=== PATIENT | female | born 1985 | race Caucasian/White ===

== ENCOUNTER 2017-08-10 20:22 | Emergency (ER) | payer MEDICARE, MEDICAID ==
[~2017-08-10] VITALS: Ht 170.2 cm; Wt 81.8 kg
[~2017-08-10 20:22] MED LIST: FAMO40TA73 PO; GUAI236S16 PO; HYDR-569 PO; KETO10TA2 PO; NITR100C6 PO; NO HOME MEDS; ONDA4TAB12 PO; ONDA4TAB59 PO; PHEN-824 PO; PRED20TA PO
[2017-08-10 20:52] LABS: BASOPHILS # (AUTO) 0.1 X10'3 (0-0.2); BASOPHILS % (AUTO) 0.6 % (0-1); EOSINOPHILS # (AUTO) 0.2 X10'3 (0-0.9); EOSINOPHILS % (AUTO) 1.3 % (0-6); HEMATOCRIT 39.1 % (35.0-45.0); HEMOGLOBIN 13.2 g/dl (12.0-16.0); LYMPHOCYTES # (AUTO) 3.6 X10'3 (1.1-4.8); LYMPHOCYTES % (AUTO) 31.2 % (21-51); MEAN CORPUSCULAR HGB CONC 33.8 % (33.0-36.5); MEAN CORPUSCULAR VOLUME 91.9 FL (78-98); MEAN PLATELET VOLUME 10.2 FL (7.4-10.4); MONOCYTES # (AUTO) 0.7 X10'3 (0-0.9); MONOCYTES % (AUTO) 6.6 % (2-12); NEUTROPHILS # (AUTO) 6.9 X10'3 (1.8-7.7); NEUTROPHILS % (AUTO) 60.3 % (42-75); PLATELET COUNT 175 X10'3 (140-440); RED BLOOD COUNT 4.26 X10'6 (4.20-5.60); RED CELL DISTRIBUTION WIDTH 12.9 % (11.5-14.5); WHITE BLOOD COUNT 11.4 X10'3 (4.5-11.0)
[2017-08-10 20:58] LABS: CLARITY,URINE Clear (Clear); COLOR,URINE Yellow (Yellow); GLUCOSE, URINE Negative (Neg); KETONES,URINE Trace mg/dl (Neg); LEUKOCYTE ESTERASE ,URINE Negative (Neg); NITRITES, URINE Negative (Neg); OCCULT BLOOD,URINE Negative (Neg); PROTEIN,URINE Negative (Neg); URINE HCG NEGATIVE (NEG)
[2017-08-10 20:58] LABS: PROTHROMBIN TIME 10.2 SECONDS (9.0-12.0)
[2017-08-10 21:01] LABS: UA COLLECTION TYPE CLN CATCH MIDSTREAM
[2017-08-10 21:04] LABS: ALANINE AMINOTRANSFERASE 42 U/L (12-78); ALBUMIN/GLOBULIN RATIO 1.1 (1.1-1.5); ALKALINE PHOSPHATASE 46 IU/L (46-116); AMYLASE 56 U/L (25-115); ANION GAP 6 (8-16); ASPARTATE AMINO TRANSFERASE 32 U/L (10-37); BILIRUBIN,TOTAL 0.3 MG/DL (0.1-1.0); BLOOD UREA NITROGEN 21 MG/DL (7-18); CALCIUM 9.1 MG/DL (8.5-10.1); CHLORIDE 108 MMOL/L (99-107); GLUCOSE 85 MG/DL (70-104); LIPASE 215 U/L (73-393); POTASSIUM 3.9 MMOL/L (3.5-5.1); SODIUM 140 MMOL/L (135-145); TOTAL CARBON DIOXIDE 26.1 MMOL/L (24-32); TOTAL PROTEIN 7.5 G/DL (6.4-8.2); eGFR 44 ML/MIN
[2017-08-10] MEDS ORDERED: ketorolac trometh inj. 60 MG/2 ML VIAL IM ONE (21:05)
[2017-08-10] MEDS ORDERED: acetaminophen 325mg tablet PO ONE (21:05)
[2017-08-10] MEDS ORDERED: ondansetron 4mg rapidly disintigrating tab PO ONE (21:05)
[2017-08-10 21:53] VITALS: BP 128/103
== END 2017-08-10 21:55 | disposition home or self-care (01) ==
LOC: ER 20:23
DX: R10.31 Right lower quadrant pain (principal); R11.0 Nausea; G89.29 Other chronic pain; F41.9 Anxiety disorder, unspecified; F32.9 Major depressive disorder, single episode, unspecified; Z88.0 Allergy status to penicillin; Z88.8 Allergy status to other drugs, medicaments and biological substances; Z79.899 Other long term (current) drug therapy
CPT/HCPCS: 36415; 80053; 81003; 81025; 82150; 83690; 85025; 85610; 96372; 99284; J1885

== ENCOUNTER 2017-10-30 08:33 | Emergency (ER) | payer MEDICARE, MEDICAID ==
[~2017-10-30] VITALS: Ht 170.2 cm; Wt 79.5 kg
[2017-10-30 08:35] VITALS: BP 148/83
[2017-10-30] MEDS ORDERED: famotidine 20mg tablet PO STA (08:56)
[2017-10-30] MEDS ORDERED: METH4TAB3 PO (08:57)
== END 2017-10-30 09:13 | disposition home or self-care (01) ==
LOC: ER 08:34
DX: T78.40XA Allergy, unspecified, initial encounter (principal); G89.29 Other chronic pain; Z88.0 Allergy status to penicillin; Z79.899 Other long term (current) drug therapy; X58.XXXA Exposure to other specified factors, initial encounter
CPT/HCPCS: 99283

== ENCOUNTER 2018-01-29 18:23 | Emergency (ER) | payer MEDICARE, MEDICAID ==
[~2018-01-29] VITALS: Ht 170.2 cm; Wt 75.0 kg
[~2018-01-29 18:23] MED LIST changes: +METH4TAB3 PO
[2018-01-29] MEDS ORDERED: ACET-2006 PO (19:00)
[2018-01-29] MEDS ORDERED: ketorolac tromethamine 15mg/ml inj. IM ONE (19:00)
[2018-01-29] MEDS ORDERED: CLIN300C70 PO (19:00)
[2018-01-29] MEDS ORDERED: IBUP-1986 PO (19:00)
[2018-01-29] MEDS ORDERED: ANBESOL TP (19:00)
[2018-01-29] MEDS ORDERED: clindamycin 150mg capsule PO ONE (19:00)
== END 2018-01-29 19:26 | disposition home or self-care (01) ==
LOC: ER 18:24
DX: K08.89 Other specified disorders of teeth and supporting structures (principal); G89.29 Other chronic pain; Z88.0 Allergy status to penicillin; Z79.899 Other long term (current) drug therapy
CPT/HCPCS: 96372; 99283; J1885

== ENCOUNTER 2018-04-12 20:26 | Emergency (ER) | payer MEDICARE, MEDICAID ==
[~2018-04-12] VITALS: Ht 170.2 cm; Wt 75.0 kg
[~2018-04-12 20:26] MED LIST changes: +ACET-2006 PO; +IBUP-1986 PO
[2018-04-12 20:46] VITALS: BP 110/73
[2018-04-12 21:21] LABS: URINE HCG NEGATIVE (NEG)
[2018-04-12 21:21] LABS: BASOPHILS % (AUTO) 0.3 % (0-1); EOSINOPHILS # (AUTO) 0.2 X10'3 (0-0.9); EOSINOPHILS % (AUTO) 1.7 % (0-6); HEMATOCRIT 37.8 % (35.0-45.0); LYMPHOCYTES # (AUTO) 3.6 X10'3 (1.1-4.8); LYMPHOCYTES % (AUTO) 33.5 % (21-51); MEAN CORPUSCULAR HEMOGLOBIN 31.7 PG (27.0-31.0); MEAN CORPUSCULAR HGB CONC 34.3 % (33.0-36.5); MEAN CORPUSCULAR VOLUME 92.6 FL (78-98); MEAN PLATELET VOLUME 9.5 FL (7.4-10.4); MONOCYTES # (AUTO) 0.6 X10'3 (0-0.9); MONOCYTES % (AUTO) 6.1 % (2-12); NEUTROPHILS # (AUTO) 6.2 X10'3 (1.8-7.7); NEUTROPHILS % (AUTO) 58.4 % (42-75); PLATELET COUNT 188 X10'3 (140-440); RED BLOOD COUNT 4.08 X10'6 (4.20-5.60); RED CELL DISTRIBUTION WIDTH 12.6 % (11.5-14.5); WHITE BLOOD COUNT 10.6 X10'3 (4.5-11.0)
[2018-04-12 21:25] LABS: CLARITY,URINE CLEAR (Clear); COLOR,URINE YELLOW (Yellow); GLUCOSE, URINE NEGATIVE (Neg); KETONES,URINE NEGATIVE (Neg); LEUKOCYTE ESTERASE ,URINE NEGATIVE (Neg); NITRITES, URINE NEGATIVE (Neg); OCCULT BLOOD,URINE NEGATIVE (Neg); PROTEIN,URINE NEGATIVE (Neg); UA COLLECTION TYPE CLN CATCH MIDSTREAM; UROBILINOGEN,URINE 0.2 E.U/dL (0.2-1.0)
[2018-04-12 21:30] LABS: ALANINE AMINOTRANSFERASE 42 U/L (12-78); ALBUMIN 3.8 G/DL (3.4-5.0); ALBUMIN/GLOBULIN RATIO 1.2 (1.1-1.5); ALKALINE PHOSPHATASE 59 IU/L (46-116); AMYLASE 65 U/L (25-115); ANION GAP 9 (8-16); ASPARTATE AMINO TRANSFERASE 25 U/L (10-37); BILIRUBIN,TOTAL 0.4 MG/DL (0.1-1.0); BLOOD UREA NITROGEN 20 MG/DL (7-18); BUN/CREATININE RATIO 17.9 (6.6-38.0); CALCIUM 8.7 MG/DL (8.5-10.1); CHLORIDE 105 MMOL/L (99-107); CREATININE 1.12 MG/DL (0.40-0.90); GLUCOSE 86 MG/DL (70-104); LIPASE 207 U/L (73-393); POTASSIUM 3.7 MMOL/L (3.5-5.1); SODIUM 141 MMOL/L (135-145); TOTAL CARBON DIOXIDE 26.9 MMOL/L (24-32); TOTAL PROTEIN 6.9 G/DL (6.4-8.2); eGFR 57 ML/MIN
[2018-04-12] MEDS ORDERED: ondansetron 4mg rapidly disintigrating tab PO ONE (21:50)
[2018-04-12] MEDS ORDERED: ONDA4TAB9 SL (21:51)
== END 2018-04-12 22:28 | disposition home or self-care (01) ==
LOC: ER 20:27
DX: B34.9 Viral infection, unspecified (principal); R11.2 Nausea with vomiting, unspecified; G89.29 Other chronic pain; Z88.0 Allergy status to penicillin; Z79.899 Other long term (current) drug therapy
CPT/HCPCS: 36415; 80053; 81003; 81025; 82150; 83690; 85025; 85610; 99284

== ENCOUNTER 2018-09-13 12:53 | Emergency (ER) | payer MEDICARE, MEDICAID ==
[~2018-09-13] VITALS: Ht 170.2 cm; Wt 78.0 kg
[~2018-09-13 12:53] MED LIST changes: +HYDR-4383 PO; -HYDR-569 PO
[2018-09-13 13:10] VITALS: BP 118/75
--- NOTE | 2018-09-14 09:20 | NUR ---
Called for patient to return. Phone went to , left message.
== END 2018-09-13 15:53 | disposition left against medical advice (07) ==
LOC: ER 12:53
DX: R07.9 Chest pain, unspecified (principal); M54.9 Dorsalgia, unspecified; R06.02 Shortness of breath; Z53.21 Procedure and treatment not carried out due to patient leaving prior to being seen by health care provider

== ENCOUNTER 2018-09-15 10:14 | Emergency (ER) | payer MEDICARE, MEDICAID ==
[~2018-09-15] VITALS: Ht 170.2 cm; Wt 76.6 kg
--- NOTE | 2018-09-15 11:54 | NUR ---
Rapid strep swab collected and sent to lab.
[2018-09-15] MEDS ORDERED: HYDR-4383 PO (12:56)
[2018-09-15 13:09] VITALS: BP 114/75
== END 2018-09-15 13:10 | disposition home or self-care (01) ==
LOC: ER 10:14
DX: J02.8 Acute pharyngitis due to other specified organisms (principal); B97.89 Other viral agents as the cause of diseases classified elsewhere; M54.2 Cervicalgia; G89.29 Other chronic pain; Z88.0 Allergy status to penicillin; Z79.899 Other long term (current) drug therapy
CPT/HCPCS: 87077; 87081; 87880; 93005; 99284

== ENCOUNTER 2018-11-27 10:39 | Emergency (ER) | payer MEDICARE, MEDICAID ==
[~2018-11-27] VITALS: Ht 170.2 cm; Wt 78.8 kg
[2018-11-27] MEDS ORDERED: morphine 2 MG/ML inj. syringe IV PRN (12:05)
[2018-11-27] MEDS ORDERED: normal saline 1000ML IV soln IVB ONE (12:05)
[2018-11-27] MEDS ORDERED: ondansetron/PF 4mg/2ml inj IV ONE (12:05)
[2018-11-27 12:13] LABS: CLARITY,URINE CLEAR (Clear); COLOR,URINE YELLOW (Yellow); GLUCOSE, URINE NEGATIVE (Neg); KETONES,URINE NEGATIVE (Neg); LEUKOCYTE ESTERASE ,URINE NEGATIVE (Neg); NITRITES, URINE NEGATIVE (Neg); OCCULT BLOOD,URINE LARGE (Neg); PROTEIN,URINE NEGATIVE (Neg); UROBILINOGEN,URINE 0.2 E.U/dL (0.2-1.0)
[2018-11-27 12:22] LABS: UA COLLECTION TYPE CLN CATCH MIDSTREAM
[2018-11-27 12:24] LABS: BACTERIA,URINE FEW /HPF (Neg); MUCUS STRANDS FEW /LPF (Neg); SQUAMOUS EPITHELIAL CELL,UR FEW /LPF (FEW); WBC,URINE 0-4 /HPF (0-4)
[2018-11-27 12:28] LABS: BASOPHILS % (AUTO) 0.6 % (0-1); EOSINOPHILS # (AUTO) 0.1 X10'3 (0-0.9); EOSINOPHILS % (AUTO) 1.6 % (0-6); HEMATOCRIT 38.8 % (35.0-45.0); LYMPHOCYTES # (AUTO) 2.6 X10'3 (1.1-4.8); LYMPHOCYTES % (AUTO) 31.2 % (21-51); MEAN CORPUSCULAR HEMOGLOBIN 31.3 PG (27.0-31.0); MEAN CORPUSCULAR HGB CONC 33.6 g/dL (33.0-36.5); MEAN PLATELET VOLUME 9.3 FL (7.4-10.4); MONOCYTES # (AUTO) 0.7 X10'3 (0-0.9); MONOCYTES % (AUTO) 8.2 % (2-12); NEUTROPHILS # (AUTO) 4.9 X10'3 (1.8-7.7); NEUTROPHILS % (AUTO) 58.4 % (42-75); PLATELET COUNT 173 X10'3 (140-440); RED BLOOD COUNT 4.17 X10'6 (4.20-5.60); WHITE BLOOD COUNT 8.4 X10'3 (4.5-11.0)
[2018-11-27 12:46] LABS: ALANINE AMINOTRANSFERASE 27 U/L (12-78); ALBUMIN 3.6 G/DL (3.4-5.0); ALBUMIN/GLOBULIN RATIO 1.2 (1.1-1.5); ALKALINE PHOSPHATASE 40 IU/L (46-116); ANION GAP 7 (8-16); ASPARTATE AMINO TRANSFERASE 18 U/L (10-37); BILIRUBIN,TOTAL 0.5 MG/DL (0.1-1.0); BLOOD UREA NITROGEN 16 MG/DL (7-18); BUN/CREATININE RATIO 18.4 (6.6-38.0); CALCIUM 8.8 MG/DL (8.5-10.1); CHLORIDE 108 MMOL/L (99-107); CREATININE 0.87 MG/DL (0.40-0.90); GLUCOSE 80 MG/DL (70-104); SODIUM 141 MMOL/L (135-145); TOTAL CARBON DIOXIDE 26.5 MMOL/L (24-32); TOTAL PROTEIN 6.7 G/DL (6.4-8.2); eGFR 76 ML/MIN
[2018-11-27 12:55] LABS: HCG SERUM QL NEGATIVE
[2018-11-27] MEDS ORDERED: METR-159 PO (13:54)
[2018-11-27 14:09] VITALS: BP 117/67
== END 2018-11-27 14:13 | disposition home or self-care (01) ==
LOC: ER 10:40
DX: N76.0 Acute vaginitis (principal); B96.89 Other specified bacterial agents as the cause of diseases classified elsewhere; G89.29 Other chronic pain; F12.90 Cannabis use, unspecified, uncomplicated; F17.200 Nicotine dependence, unspecified, uncomplicated; Z98.890 Other specified postprocedural states; Z88.0 Allergy status to penicillin; Z79.899 Other long term (current) drug therapy
CPT/HCPCS: 36415; 71046; 76830; 76856; 80053; 81001; 84703; 85025; 87210; 87491; 87591; 96374; 96375; 99284; J2270; J2405; J7030; 93005

== ENCOUNTER 2019-05-13 15:03 | Emergency (ER) | payer MEDICARE, MEDICAID ==
[~2019-05-13] VITALS: Ht 170.2 cm; Wt 77.3 kg
[2019-05-13 15:12] VITALS: BP 119/82
[2019-05-13] MEDS ORDERED: LIDO20SO16 PO (15:40)
== END 2019-05-13 15:48 | disposition home or self-care (01) ==
LOC: ER 15:03
DX: J02.9 Acute pharyngitis, unspecified (principal); R09.81 Nasal congestion; R11.10 Vomiting, unspecified; F41.9 Anxiety disorder, unspecified; F32.9 Major depressive disorder, single episode, unspecified; F12.90 Cannabis use, unspecified, uncomplicated; Z88.0 Allergy status to penicillin; Z79.899 Other long term (current) drug therapy; Z98.890 Other specified postprocedural states
CPT/HCPCS: 99283

== ENCOUNTER 2019-10-14 10:35 | Emergency (ER) | payer MEDICARE, MEDICAID ==
[~2019-10-14] VITALS: Ht 170.2 cm; Wt 86.4 kg
[~2019-10-14 10:35] MED LIST changes: +LIDO20SO16 PO
[2019-10-14 13:59] VITALS: BP 110/83
== END 2019-10-14 14:10 | disposition home or self-care (01) ==
LOC: ER 10:36
DX: J06.9 Acute upper respiratory infection, unspecified (principal); F17.200 Nicotine dependence, unspecified, uncomplicated; F12.90 Cannabis use, unspecified, uncomplicated; Z98.890 Other specified postprocedural states; Z88.0 Allergy status to penicillin; Z79.899 Other long term (current) drug therapy
CPT/HCPCS: 99281

== ENCOUNTER → 2020-09-01 | Emergency (ER) | payer MEDICARE, MEDICAID ==
[~2020-09-01] VITALS: Ht 170.2 cm; Wt 89.1 kg
[~2020-09-01] MED LIST changes: +CLIN-97 PO; +HYDROcodone/acetaminophen 5mg/325mg tablet PO ONE; +clindamycin 150mg capsule PO ONE
[2020-09-01 22:45] VITALS: BP 135/87
== END | disposition home or self-care (01) ==
LOC: ER 22:42
DX: S02.5XXA Fracture of tooth (traumatic), initial encounter for closed fracture (principal); K04.7 Periapical abscess without sinus; F17.200 Nicotine dependence, unspecified, uncomplicated; G89.29 Other chronic pain; Z88.0 Allergy status to penicillin; Z79.899 Other long term (current) drug therapy; Z87.81 Personal history of (healed) traumatic fracture; Z98.891 History of uterine scar from previous surgery; X58.XXXA Exposure to other specified factors, initial encounter; Y93.89 Activity, other specified; Y92.89 Other specified places as the place of occurrence of the external cause; Y99.8 Other external cause status
CPT/HCPCS: 99283

== ENCOUNTER 2021-03-27 11:58 | Emergency (ER) | payer MEDICARE, MEDICAID ==
[~2021-03-27] VITALS: Ht 170.2 cm; Wt 81.8 kg
[~2021-03-27 11:58] MED LIST changes: -HYDROcodone/acetaminophen 5mg/325mg tablet PO ONE; -clindamycin 150mg capsule PO ONE
[2021-03-27 12:29] VITALS: BP 130/84
== END 2021-03-27 12:38 | disposition home or self-care (01) ==
LOC: ER 11:58
DX: J02.9 Acute pharyngitis, unspecified (principal); Z20.822 Contact with and (suspected) exposure to COVID-19; R11.2 Nausea with vomiting, unspecified; G89.29 Other chronic pain; F41.9 Anxiety disorder, unspecified; F32.9 Major depressive disorder, single episode, unspecified; F12.90 Cannabis use, unspecified, uncomplicated; Z98.890 Other specified postprocedural states; Z72.89 Other problems related to lifestyle; Z88.0 Allergy status to penicillin; Z79.2 Long term (current) use of antibiotics; Z79.899 Other long term (current) drug therapy
CPT/HCPCS: 36415; 99283; U0003; U0005

== ENCOUNTER 2024-05-19 12:34 | Emergency (ER) | payer MEDICAID, MEDICARE, OTHER ==
[~2024-05-19] VITALS: Ht 170.2 cm; Wt 86.4 kg
[~2024-05-19 12:34] MED LIST changes: +ONDA-243 PO; -ONDA4TAB12 PO
[2024-05-19 12:47] VITALS: BP 132/96; PULSE 85; O2SAT 98
[2024-05-19] MEDS: dexamethasone sod phosphate 10mg/ml inj IM STA (12:51)
[2024-05-19 12:55] VITALS: RESP 16
[2024-05-19] MEDS: cyclobenzaprine 10mg tablet PO ONE (12:55)
[2024-05-19] MEDS: HYDROcodone/acetaminophen 5mg/325mg tablet PO ONE (12:55)
[2024-05-19] MEDS: ondansetron 4mg rapidly disintigrating tab PO ONE (12:55)
[2024-05-19] MEDS: ketorolac trometh 30MG/ML vial 30 MG/ML VIAL IM ONE (12:55)
[2024-05-19] MEDS ORDERED: HYDR-3965 PO (13:59)
[2024-05-19] MEDS ORDERED: LIDO700A32 TOP (13:59)
[2024-05-19] MEDS ORDERED: CYCL-1 PO (13:59)
[2024-05-19 14:35] VITALS: TEMP 98.1
== END 2024-05-19 14:37 | disposition home or self-care (01) ==
LOC: ER 12:35
DX: M54.2 Cervicalgia (principal); G89.29 Other chronic pain; F41.9 Anxiety disorder, unspecified; F32.A Depression, unspecified; F12.90 Cannabis use, unspecified, uncomplicated; Z88.0 Allergy status to penicillin; Z79.1 Long term (current) use of non-steroidal anti-inflammatories (NSAID); Z79.2 Long term (current) use of antibiotics; Z79.899 Other long term (current) drug therapy
CPT/HCPCS: 72050; 96372; 99284; J1100; J1885

== ENCOUNTER 2025-02-10 17:36 | Emergency (ER) | payer MEDICAID ==
[~2025-02-10] VITALS: Ht 170.2 cm; Wt 77.1 kg
[~2025-02-10 17:36] MED LIST changes: +CYCL-1 PO; +LIDO-52 TOP
[2025-02-10 17:42] VITALS: BP 126/95; PULSE 88; RESP 15; O2SAT 100
[2025-02-10] MEDS ORDERED: CYCL-1 PO (18:46)
[2025-02-10] MEDS ORDERED: NAPR-56 PO (18:46)
--- NOTE | 2025-02-10 18:46 | Physician Documentation ---
History of Present Illness ~ Chief Complaint: Shoulder pain Stated Complaint: RT SHOULDER PAIN Time Seen by MD: 18:10 OK to notify your PCP?: Yes Primary Medical Doctor: [facility] Source: patient Mode of Arrival: POV Exam Limitations: no limitations HPI 39-year-old female presents with right shoulder pain for the past 2 months after picking up a heavy generator. She has received a referral to Orthopedics but does not have an appointment till March. She had an x-ray done by her primary care provider and was negative for any fracture. She has limited range motion in that arm due to pain. She reports that sometimes when she picks something up she is unable to hold it as she has decreased strength in that right hand. Tetanus within 5 years?: Yes Medication Reconciliation Allergies: Coded Allergies: Penicillins (Unverified Allergy, Unknown, 03/27/21) Scheduled Acetaminophen (Acetaminophen Extra Strength), 2 TAB PO QID Clindamycin HCL* (Clindamycin HCL*), 1 CAP PO Q8H Cyclobenzaprine* (Cyclobenzaprine*), 1 TAB PO HS Famotidine (Pepcid), 1 TAB PO DAILY Guaifenesin/D-Methorphan Hb (Robitussin Dm), 10 ML PO Q6H Ibuprofen (Ibuprofen), 1 TAB PO Q8H Lidocaine (Lidoderm), 1 PATCH TOP DAILY Lidocaine Hcl (Xylocaine Viscous), 5 ML PO Q2H PRN SORE THROAT Methylprednisolone (Medrol), 1 DOSPAK PO UD Naproxen (Naproxen), 1 TAB PO Q12H Nitrofurantoin Monohyd/M-Cryst (Macrobid 100 mg Capsule), 1 CAP PO Q12H Ondansetron Hcl (Ondansetron Hcl), 4 MG PO Q8H PRN N/V Phenazopyridine HCl (Pyridium), 1 TAB PO Q8H Prednisone* (Prednisone*), 20 MG PO DAILY Scheduled PRN Cyclobenzaprine* (Cyclobenzaprine*), 1 TABLET PO Q8H PRN for muscle spasms Hydrocodone/Acetaminophen ([place] 5-325 Tablet), 1 TABLET PO Q6H PRN for pain Hydrocodone/Acetaminophen ([place] 5-325 Tablet), 1 TAB PO TID PRN PRN for pain Hydrocodone/Acetaminophen ([place] 5-325 Tablet), 1 TAB PO QID PRN PRN for pain Ketorolac Tromethamine (Ketorolac Tromethamine), 1 TAB PO Q6H PRN PRN for pain ONDANSETRON ODT 4mg tablet (Ondansetron Odt), 1 TABLET PO Q6H PRN for nausea/vomiting Miscellaneous Medications Home Med List (No Home Medications), (Reported) Past Medical History Past Medical History: Chronic Pain, Extremity Fracture, Anxiety, Depression Past Surgical History: Other Past Family History: NONCONTRIBUTORY Alcohol Use: Occasionally Drug Use: marijuana Lives with: Family Lives In: Home Occupation: disabled Review of Systems All Other Systems at this time: Reviewed and Negative Physical Exam Vital Signs: RN Vital Signs have been reviewed: Yes, Temperature: 97.9, Source: Temporal, Heart Rate: 88, Respiratory Rate: 15, BP: 126/95, Pulse Oximetry: 100, Weight: 77.100 Pulse Oximetry Reflects: adequate oxygenation Physical Exam General: Alert, no apparent distress. HEENT: no injection, moist mucous membranes. Neck: Full range of motion. Respiratory: Lungs clear, no respiratory distress. Chest: No accessory muscle use. Cardiovascular: Regular rate and rhythm, no murmurs. Gastrointestinal: Soft, nontender, nondistended. Bowels sounds present. Extremities: Right shoulder has limited range motion, tenderness to palpation of deltoid muscle. Positive Neers, Analia, Schaffer-Aubrey tests. Neurologic: Oriented x4. Psychiatric: Normal mood and affect. Skin: Normal color, warm and dry. No edema, no ecchymosis. Progress Results/Orders Results/Orders Completed Orders - HOLLY KELLER Naproxen Tablet (Naprosyn Tablet) (02/10/25 18:50) Medications Received in ER Medications (Trade) Dose Ordered Sig/Faina Route PRN Reason Start Time Stop Time Status Last Admin Dose Admin (Naprosyn tablet) 500 mg ONCE ONCE PO 02/10/25 18:50 02/10/25 18:51 DC 02/10/25 18:58 500 MG Vital Signs 02/10/25 02/10/25 17:42 18:51 Temp 97.9 97.9 Pulse 88 Resp 15 B/P (MAP) 126/95 Pulse Ox 100 Medical Decision Making Findings [age] old female with right shoulder pain after lifting a heavy generator 2 months ago. She has had very decreased range of motion and some weakness in that extremity. Physical exam shows possible rotator cuff injury versus impingement. She reports it is painful to sleep on as well. She has been seen by her primary care, had an x-ray which was negative for fracture and referred t o Orthopedics. She has a appointment to we orthopedics in March but was hoping to get something for pain relief. She was originally requesting an MRI or CT scan to be done here today in the department but did our we discussed that she has to do that through Orthopedics and that we do not do nonemergent MRIs in this department. She has been taking ibuprofen with no relief, and cyclobenzaprine which she is requesting a refill. Gave naproxen while here in the department and gave her a prescription for Flexeril. Follow up with her primary care provider in the next week and return back here for any new or worsening symptoms. Departure Disposition: HOME / SELF CARE / HOMELESS Impression: Primary Impression: Shoulder pain Condition: Stable Discharge Instructions: Shoulder Pain, [id number] Additional Instructions: Follow up with your primary care provider as already scheduled and continue with your appointment to see orthopedics. Use Tylenol and/or naproxen for pain relief as well as the Flexeril as needed. Remember to do passive range of motion exercises with that shoulder to prevent frozen shoulder. Continue with ice and heat therapy. Referrals: NO PRIMARY CARE PROVIDER (PCP) Prescriptions Cyclobenzaprine* (Cyclobenzaprine*) 10 Mg Tablet 1 TABLET PO Q8H PRN for muscle spasms, #30 TABLET Prov: HOLLY KELLERP 02/10/25 Naproxen (Naproxen) 500 Mg Tablet 1 TAB PO Q12H, #60 TAB Prov: HOLLY KELLERP 02/10/25 Education Educated: Patient Educated regarding: diagnosis, treatment, prognosis, need for follow up Additional Comment Medical Screen Exam This patient recieved a medical screening examination. After reviewing the individual's medical complaints with presenting symptoms and performing an appropriate physical examination, it was determined that no immediate life- threatening emergency medical condition is present. This individual is also not a women having contractions. Signature Scribe Signature: . Attestation: Scribed for Holly Keller by Holly Kaplan NP . 02/10/25 22:09 Parts of this note were created using [employer] voice recognition software program. While efforts were made to correct any mistakes made by this voice recognition software program, nonsensical phrases may remain in this note. In addition, there may be errors and syntax, grammar, content and spelling. HOLLY KELLER SNAG GRINDER Feb 10, 2025 18:46
[2025-02-10 18:51] VITALS: TEMP 97.9
== END 2025-02-10 19:00 | disposition home or self-care (01) ==
LOC: ER 17:37
DX: M25.511 Pain in right shoulder (principal); Z88.0 Allergy status to penicillin; Z79.899 Other long term (current) drug therapy; Z72.89 Other problems related to lifestyle; F41.9 Anxiety disorder, unspecified; F32.A Depression, unspecified; F12.90 Cannabis use, unspecified, uncomplicated
CPT/HCPCS: 99282; 99283